=== PATIENT | male | born 1955 | race Two or more races ===

== ENCOUNTER 2016-10-09 09:08 | Emergency (ER) | payer OTHER ==
[2016-10-09 09:19] VITALS: BMI 27.4
--- NOTE | 2016-10-09 10:16 | PDOC ---
History of Present Illness - General Chief Complaint: Respiratory Stated Complaint: ABSCESS ON NECK Time Seen by Provider: 10/09/16 09:35 History Source: Patient Exam Limitations: No Limitations - History of Present Illness Initial Comments: 10/09/16 10:16 61-year-old male presents to the ED with complaints of a bump to his upper chest approximately 3 days ago with minimal tenderness. Patient denies fever, chills, skin discoloration, recent injury to affected area or previous similar symptoms. Patient denies history of cancer, myalgia, achy joints, Lyme disease, recent infection, or or chest pain. Patient denies shortness of breath and states has had this intermittent cough for years which may be related to his cigarette smoking which consist of 1-2 cigarettes a day. \ Timing/Duration: other (3 days) Severity: mild Associated Symptoms: reports: denies symptoms Past History - Past Medical History Allergies/Adverse Reactions: Allergies Allergy/AdvReac Type Severity Reaction Status Date / Time meperidine HCl [From Demerol] Allergy Unknown Verified 10/09/16 09:15 Home Medications: Ambulatory Orders NK [No Known Home Medication] 10/08/15 - Surgical History Abdominal Surgery: Yes - Psycho/Social/Smoking Cessation Hx Anxiety: No Suicidal Ideation: No Smoking History: Current every day smoker Have you smoked in the past 12 months: Yes Number of Cigarettes Smoked Daily: 2 Information on smoking cessation initiated: No Hx Alcohol Use: Yes Substance Use Type: Alcohol Patient Lives Alone: No Lives with/in: spouse/SO Review of Systems - Review of Systems Able to Perform ROS?: Yes Constitutional: No: Symptoms Reported HEENTM: No: Symptoms Reported Respiratory: Yes: Cough (mild intermittent chronic) Cardiac (ROS): No: Symptoms Reported ABD/GI: No: Symptoms Reported Musculoskeletal: No: Symptoms Reported Integumentary: No: Symptoms Reported Neurological: No: Symptoms reported Endocrine: No: Symptoms Reported Hematologic/Lymphatic: No: Symptoms Reported *Physical Exam - Vital Signs Last Vital Signs Temp Pulse Resp BP Pulse Ox 98.3 F 84 18 156/102 100 10/09/16 09:15 10/09/16 09:15 10/09/16 09:15 10/09/16 09:15 10/09/16 09:15 - Physical Exam General Appearance: Yes: Nourished, Appropriately Dressed. No: Apparent Distress HEENT: positive: EOMI, ALEX. negative: Pale Conjunctivae Respiratory/Chest: positive: Chest Tender (minimal over palpable semi-mobile semi-soft oval-shaped raised mass likely a lymph node to the upper sternal border. ), Lungs Clear, Normal Breath Sounds. negative: Respiratory Distress, Accessory Muscle Use Cardiovascular: positive: Regular Rhythm, Regular Rate. negative: Murmur Extremity: positive: Normal Capillary Refill. negative: Pedal Edema Integumentary: positive: Normal Color, Warm, Moist Neurologic: positive: Normal Mood/Affect, Motor Strength 5/5 (ambulatory) ED Treatment Course - LABORATORY CBC & Chemistry Diagram: 10/09/16 10:16 10/09/16 10:16 - RADIOLOGY Radiology Studies Ordered: Category Date Time Status CHEST CT WITH CONTRAST [CT] Stat CT Scan 10/09/16 09:49 Ordered Medical Decision Making - Medical Decision Making 10/09/16 10:20 Patient will complaining of mildly tender mass of his upper chest wall. Patient states no history of cancer recent illness or infection. Patient with palpable Mediastinal lymph node of unknown etiology. Patient was ordered for CBC, comp and CT of the chest with contrast. If negative patient can follow up with his PCP. 10/09/16 12:25 Laboratory Tests 10/09/16 10/09/16 10:16 10:16 WBC 5.7 Hgb 16.7 Hct 50.1 H MCV 94.3 Neutrophils % 68.5 Monocytes % 12.4 H Sodium 141 Potassium 4.8 Chloride 105 Carbon Dioxide 30 Anion Gap 6 L BUN 17 Creatinine 1.0 Random Glucose 106 Total Bilirubin 0.6 AST 81 H ALT 84 H Patient does drink beer frequently. CT shows no evidence of mediastinal or hilar mass or adenopathy. No pleural or pericardial effusions or aneurysms noted. Lungs small biapical blebs noted with small patchy opacities in the lower lobes. Noncalcified nodule measuring 7 cm in the left upper lobe is seen along with a 4.9 mm nodule near the fissure of the right. Patient should have a follow-up in 6 months. Patient to be discharged home. *DC/Admit/Observation/Transfer Diagnosis at time of Disposition: Nodule of chest wall - Discharge Dispostion Disposition: HOME Condition at time of disposition: Good - Patient Instructions Printed Discharge Instructions: DI for Pulmonary Nodule Additional Instructions: The CAT scan did not show any abnormalities on the chest but did note small nodules in both lung gold, that should be followed up in 6 months. Avoid alcohol Print Language: KINYARWANDA
[2016-10-09 10:41] LABS: BASOPHIL 0.8 % (0-2.0); EOSINOPHIL 2.7 % (0-4.5); MCH 31.5 pg (25.7-33.7); MCHC 33.4 g/dl (32.0-35.9); MEAN CELL VOLUME 94.3 fl (80-96); MEAN PLT VOLUME 8.9 fl (7.5-11.1); NEUTROPHILS 68.5 % (42.8-82.8); PLATELET COUNT 218 K/MM3 (134-434); RDW 13.6 % (11.9-15.9); WHITE BLOOD COUNT 5.7 K/mm3 (4.0-10.0)
[2016-10-09 10:50] LABS: ALBUMIN 4.1 g/dl (3.4-5.0); ANION GAP 6 (8-16); BILIRUBIN,TOTAL 0.6 mg/dL (0.2-1.0); CALCIUM 9.7 mg/dL (8.5-10.1); CO2 30 mmol/L (21-32); GLUCOSE,RANDOM 106 mg/dL (74-106); SGOT/AST 81 U/L (15-37); SGPT/ALT 84 U/L (12-78); TOT PROT 7.5 g/dl (6.4-8.2)
[2016-10-09 10:51] LABS: ALK PHOS 75 U/L (45-117)
[2016-10-09 12:13] VITALS: BP 152/89; PULSE 74; TEMP 97.7
== END 2016-10-09 13:17 | disposition home or self-care (01) ==
LOC: JER 09:08
DX: R22.2 Localized swelling, mass and lump, trunk (principal); F17.210 Nicotine dependence, cigarettes, uncomplicated
CPT/HCPCS: 36415; 71260-TC; 80053; 85025; 99283-25

== ENCOUNTER 2018-04-01 10:11 | Emergency (ER) | payer OTHER ==
[2018-04-01 10:24] VITALS: BP 162/98; PULSE 90; TEMP 98.8; BMI 24.2
[2018-04-01] MEDS ORDERED: IBUPROFEN 400 MG TABLET (FP) PO ONE ×2 (10:40→10:43)
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
== END 2018-04-01 11:20 | disposition home or self-care (01) ==
LOC: JERFT 10:11
DX: S43.401A Unspecified sprain of right shoulder joint, initial encounter (principal); V18.0XXA Pedal cycle driver injured in noncollision transport accident in nontraffic accident, initial encounter; Y92.488 Other paved roadways as the place of occurrence of the external cause; Y93.55 Activity, bike riding; Y99.8 Other external cause status
CPT/HCPCS: 73030-TC-RT-FY; 99281-25